=== PATIENT | male | born 1980 | race Caucasian/White ===

== ENCOUNTER 2018-10-02 11:01 | Emergency (ER) | payer OTHER ==
[2018-10-02] MEDS ORDERED: DIPH/PERTUSS(ACELL)/TETANUS VAC/PF 0.5 ML SYR (>=10YO) IM ONE (11:34)
--- NOTE | 2018-10-02 11:37 | ER Document Report ---
ED Hand/Wrist Injury - General Chief Complaint: Laceration Stated Complaint: HAND LACERATION Time Seen by Provider: 10/02/18 11:30 Mode of Arrival: Ambulatory Information source: Patient Notes: 38-year-old male presented to ED for an avulsion injury to the ulnar side of his right hand. He was working on a roof when he fell off the roof in his harness slicing the side of his hand off to the fascia. Patient's bleeding was under controlled. Patient was alert and oriented respirations regular and unlabored speaking in full sentences walks with a even steady gait. TRAVEL OUTSIDE OF THE [place] IN LAST 30 DAYS: No - HPI Injury to: Hand Onset: Just prior to arrival Where: Outdoors, Work Timing: Still present Quality of pain: Achy, Sharp Severity: Moderate Pain Level: 4 Context: Fall, Laceration - Related Data Allergies/Adverse Reactions: No Known Allergies Allergy (Verified 10/02/18 11:24) Past Medical History - General Information source: Patient - Social History Smoking Status: Current Every Day Smoker Cigarette use (# per day): Yes Smoking Education Provided: Yes - 4 minutes Frequency of alcohol use: Occasional Drug Abuse: None Family History: Reviewed & Not Pertinent Patient has suicidal ideation: No Patient has homicidal ideation: No - Past Medical History Cardiac Medical History: Reports: None Pulmonary Medical History: Reports: None EENT Medical History: Reports: None Neurological Medical History: Reports: None Endocrine Medical History: Reports: None Renal/ Medical History: Reports: None Malignancy Medical History: Reports None GI Medical History: Reports: None Musculoskeletal Medical History: Reports None Skin Medical History: Reports None Psychiatric Medical History: Reports: None Traumatic Medical History: Reports: None Infectious Medical History: Reports: None Surgical Hx: Negative Past Surgical History: Reports: None - Immunizations Hx Diphtheria, Pertussis, Tetanus Vaccination: Yes Review of Systems - Review of Systems Constitutional: No symptoms reported EENT: No symptoms reported Cardiovascular: No symptoms reported Respiratory: No symptoms reported Gastrointestinal: No symptoms reported Genitourinary: No symptoms reported Male Genitourinary: No symptoms reported Musculoskeletal: No symptoms reported Skin: Other - Avulsion injury to the ulnar side of the right hand Hematologic/Lymphatic: No symptoms reported Neurological/Psychological: No symptoms reported Physical Exam - Vital signs Vitals: Temp Pulse Resp BP Pulse Ox 98 F 71 21 H 136/89 H 100 10/02/18 11:17 10/02/18 11:17 10/02/18 11:17 10/02/18 11:17 10/02/18 11:17 Interpretation: Normal - General General appearance: Appears well, Alert - HEENT Head: Normocephalic, Atraumatic Eyes: Normal Pupils: PERRL - Respiratory Respiratory status: No respiratory distress Chest status: Nontender Breath sounds: Normal Chest palpation: Normal - Cardiovascular Rhythm: Regular Heart sounds: Normal auscultation Murmur: No - Abdominal Inspection: Normal Distension: No distension Bowel sounds: Normal Tenderness: Nontender Organomegaly: No organomegaly - Back Back: Normal, Nontender - Extremities General upper extremity: Normal inspection, Nontender, Normal color, Normal ROM , Normal temperature General lower extremity: Normal inspection, Nontender, Normal color, Normal ROM , Normal temperature, Normal weight bearing. No: Deon's sign - Neurological Neuro grossly intact: Yes Cognition: Normal Orientation: AAOx4 Netta Coma Scale Eye Opening: Spontaneous Lottie Coma Scale Verbal: Oriented Lottie Coma Scale Motor: Obeys Commands Netta Coma Scale Total: 15 Speech: Normal Motor strength normal: LUE, RUE, LLE, RLE Sensory: Normal - Psychological Associated symptoms: Normal affect, Normal mood - Skin Skin Temperature: Warm Skin Moisture: Dry Skin Color: Normal Location of irregularity: Extremities - Avulsion to the ulnar side of the right hand 3 inches x 1 inch to the fascia Irregularity with: Swelling, Tenderness Course - Re-evaluation Re-evalutation: 10/02/18 21:31 Wound was cleaned well with surgical scrub rinsed well with saline, bacitracin then Xeroform Telfa and Kerlix were used to dress the wound. Coban was used to secure the dressing and patient was discharged home with necessary equipment to change the dressing tomorrow. Patient was instructed to call orthopedics today to get an appointment for follow-up with orthopedics if possible tomorrow. Patient was discharged home with prescription for Alberta. - Vital Signs Vital signs: Temp Pulse Resp BP Pulse Ox 98.8 F 74 17 134/93 H 98 10/02/18 12:07 10/02/18 12:07 10/02/18 12:07 10/02/18 12:07 10/02/18 12:07 Discharge - Discharge Clinical Impression: avulsion ulnar side of hand Condition: Stable Disposition: HOME, SELF-CARE Instructions: Family Physicians / Practices Additional Instructions: Avulsion Injury You have an avulsion injury -- a loss of skin which can't be helped by suturing. When large, these injuries can require skin grafting. Smaller defects or shallow avulsions usually heal well with dressings. Keep the dressing clean and dry. If the bandage becomes wet, remove it, blot the area dry, and apply a fresh dressing. Change the dressings every day. Complete healing may take anywhere from 10 days to two months. The healing time depends on the size and depth of the avulsion and on the amount of crushing of underlying tissues. Re-examination by the physician is often necessary. If any signs of infection occur (swelling, redness, increasing tenderness, red streaks, profuse purulent drainage from the avulsion, tender lumps in the armpit or groin above the avulsion, or fever), see your doctor immediately. NON-SUTURED LACERATION: Your laceration did not require suturing. Some lacerations cannot be sutured because of increased infection risk, while others simply don't need stitches because they are shallow or very short. Your injury should be protected while it heals. Usually complete healing takes 10 to 14 days. Keep the dressing clean and dry, and change it every day. If you notice increasing pain, redness, swelling, drainage, or tender lumps in the armpit or groin above the injury, infection may be present. You should call the doctor at once. SOAP CLEANSING: Gently wash the wound daily using a mild soap (like Ivory, Phisoderm, Neutrogena). Use warm water, rubbing gently until all debris, ooze, and crusting have been washed from the wound. Allow to dry briefly (about 10 minutes) after cleaning. Repeat this cleansing at least three times a day for the first two days and then once or twice a day. ANTIBIOTIC OINTMENT PROTECTION: Your wounds are such that dressing them is not practical or optional. After cleansing, you should apply a thin coating of antibiotic ointment ( Bacitracin, not Neosporin) to the wounds at least three times daily. This lessens infection risk, and may decrease the amount of scarring. Use a q-tip or dull butter knife, not your finger, to apply this ointment. Any debris or ooze which builds up in the ointment should be gently rubbed off with a sterile gauze pad. Harder crusting may need to be gently scrubbed off with a clean wash cloth with soap and warm water, perhaps applying a warm, wet wash cloth to the wound for ten minutes first. Development of redness, severe itching, or blistering may mean allergy to the ointment. See the doctor. TETANUS IMMUNIZATION GIVEN: You have been given an immunization against tetanus. Please record this in your records. In general, a booster is needed only once every 10 years. The tetanus shot protects against tetanus or "lockjaw," which is a complication of certain wound infections (the tetanus shot cannot protect against the actual infection). The immunization site may become warm and red due to local reaction. If this occurs, apply warm compresses and take aspirin or ibuprofen to reduce inflammation and discomfort. Return for evaluation if the reaction becomes severe. Cephalexin The antibiotic you've been prescribed is a member of the cephalosporin class. This type of antibiotic covers a wide variety of infections, including those of the skin, lungs, and urinary tract. It's useful for staph infections. This antibiotic is slightly similar to the penicillin family. In rare cases , a person who is allergic to penicillin will also be allergic to this medication. If you have had a severe allergic reaction to penicillin, and have not taken this antibiotic since that time, notify your doctor. Antibiotics which cover many germs ("broad spectrum" antibiotics) are more likely to cause diarrhea or "yeast" infections. Women prone to vaginal yeast problems may suffer an attack after taking this antibiotic. In infants, oral thrush (white spots "stuck" on the cheek) or yeast diaper rash may result. See your doctor if these problems occur. Call at once if you develop itching, hives , shortness of breath, or lightheadedness. ORAL NARCOTIC MEDICATION: You have been given a prescription for pain control. This medication is a narcotic. It's best taken with food, as nausea can result if taken on an empty stomach. Don't operate machinery or drive within six hours of taking this medication. Do not combine this medicine with alcohol, or with any medication which can cause sedation (such as cold tablets or sleeping pills) unless you get permission from the physician. Narcotics tend to cause constipation. If possible, drink plenty of fluids and eat a diet high in fiber and fruits. Please follow-up with orthopedics I have given you the name and number. This is your right hand it is a very necessary piece of equipment for your job. FOLLOW-UP CARE: Please return in ___3__ days for an infection check and dressing change. If you have been referred to another physician for follow-up care, call that physicians office for an appointment as you were instructed. If you experience a significant change in your laceration, or if you are concerned there may be an infection (swelling, redness, drainage, increasing tenderness, red streaks, tender lumps in the armpit or groin above the laceration, or fever) , return to the Emergency Department immediately re-evaluation. Prescriptions: Hydrocodone/Acetaminophen [Alberta 5-325 mg Tablet] 1 tab PO Q6HP PRN #6 tablet PRN Reason: Cephalexin Monohydrate [Keflex 500 mg Capsule] 500 mg PO Q6H 5 Days capsule Forms: Elevated Blood Pressure, Smoking Cessation Education, Return to Work Referrals: LLOYD,NO [NO LOCAL MD] - Follow up as needed ELLA HARDIN DO [ACTIVE STAFF] - Follow up as needed
[2018-10-02 12:09] VITALS: BP 134/93
== END 2018-10-02 12:07 | disposition home or self-care (01) ==
LOC: ER 11:01
DX: S61.411A Laceration without foreign body of right hand, initial encounter (principal); W13.2XXA Fall from, out of or through roof, initial encounter; Y93.89 Activity, other specified; Y99.0 Civilian activity done for income or pay; F17.210 Nicotine dependence, cigarettes, uncomplicated; Z71.6 Tobacco abuse counseling
CPT/HCPCS: 90715; 99282; 99406